=== PATIENT | male | born 1970 | race African-American/Black ===

== ENCOUNTER 2017-01-13 16:58 | Emergency (ER) | payer SELFPAY ==
[~2017-01-13] VITALS: Ht 182.9 cm; Wt 79.4 kg
[~2017-01-13 16:58] MED LIST: CEPH-264 PO; OXYC-323 PO
[2017-01-13 17:11] VITALS: BP 142/80
--- NOTE | 2017-01-13 17:15 | PHYS DOC ---
Past Medical History Past Medical History: Other Additional Past Medical Histor: jaw fracture Past Surgical History: No Surgical History Alcohol Use: Heavy Drug Use: Marijuana, Methamphetamine Adult General Chief Complaint Chief Complaint: DENTAL PROBLEM HPI HPI Patient is a 46 year old L presents to the emergency department with complaints of chronic dental and oral pain. Patient reports 4 years ago he had a fractured jaw that was wired. He states that the wires broke and he is scheduled to have surgery sometime in that for your window but has not yet had the surgery. He states that he takes ibuprofen every day to relieve his pain. Today the patient reports he took 2 hydrocodone that belonged to a friend of his as well as beer in attempt to relieve the pain. Intoxicated at the time of arrival to the emergency department Patient reports that he's had no recent injury. He is seeking pain medication. Review of Systems Review of Systems Constitutional: Denies fever or chills [] Eyes: Denies change in visual acuity, redness, or eye pain [] HENT: Denies nasal congestion or sore throat, chronic jaw pain [] Respiratory: Denies cough or shortness of breath [] Cardiovascular: No additional information not addressed in HPI [] GI: Denies abdominal pain, nausea, vomiting, bloody stools or diarrhea [] : Denies dysuria or hematuria [] Musculoskeletal: Denies back pain or joint pain [] Integument: Denies rash or skin lesions [] Neurologic: Denies headache, focal weakness or sensory changes [] Endocrine: Denies polyuria or polydipsia [] Allergies Allergies Allergies Coded Allergies Type Severity Reaction Last Updated Verified No Known Drug Allergies 01/26/15 No Physical Exam Physical Exam Constitutional: Well developed, well nourished, no acute distress, non-toxic appearance, patient appears intoxicated, slurred speech.. [] HENT: Normocephalic, atraumatic, bilateral external ears normal, oropharynx moist, no oral exudates, no malocclusion. Patient does have external wires to the right lower teeth. No gingival erythema or swelling. Nose normal. [] Eyes: PERRLA, EOMI, conjunctiva normal, no discharge. [] Neck: Normal range of motion, no tenderness, supple, no stridor. [] Cardiovascular:Heart rate regular rhythm, no murmur [] Lungs & Thorax: Bilateral breath sounds clear to auscultation [] Abdomen: Bowel sounds normal, soft, no tenderness, no masses, no pulsatile masses. [] Skin: Warm, dry, no erythema, no rash. [] Back: No tenderness, no CVA tenderness. [] Extremities: No tenderness, no cyanosis, no clubbing, ROM intact, no edema. [] Neurologic: Alert and oriented X 3, normal motor function, normal sensory function, no focal deficits noted. [] Psychologic: Affect normal, judgement normal, mood normal. [] Current Patient Data Vital Signs Vital Signs Date Time Temp Pulse Resp B/P (MAP) Pulse Ox O2 Delivery O2 Flow Rate FiO2 01/13/17 17:11 98.0 75 20 97 Room Air 98.0 EKG EKG [] Radiology/Procedures Radiology/Procedures [] Course & Med Decision Making Course & Med Decision Making Pertinent Labs and Imaging studies reviewed. (See chart for details) [] Dragon Disclaimer Dragon Disclaimer This electronic medical record was generated, in whole or in part, using a voice recognition dictation system. Departure Departure Impression: Primary Impression: History of oral pain Additional Impression: Mouth pain Disposition: 01 HOME, SELF-CARE Condition: STABLE Referrals: NO PCP (PCP) Patient Instructions: Chronic Pain, Chronic Pain Management Additional Instructions: Follow-up with the oral surgeon whom previously treated you at [facility]. You have also been provided with a list of available dental clinics, please call and schedule an appointment. Scripts Naproxen (NAPROSYN) 500 Mg Tablet 500 MG PO BID Y for PAIN, #14 TAB Prov: JUAN MIGUEL HUNTER APRN 01/13/17 Problem Qualifiers JUAN MIGUEL HUNTER APRN Jan 13, 2017 17:14
[2017-01-13] MEDS ORDERED: NAPR500T PO (17:16)
== END 2017-01-13 17:20 | disposition home or self-care (01) ==
LOC: ER 16:58
DX: K13.79 Other lesions of oral mucosa (principal); F10.129 Alcohol abuse with intoxication, unspecified; F12.10 Cannabis abuse, uncomplicated; F15.10 Other stimulant abuse, uncomplicated
CPT/HCPCS: 99282